=== PATIENT | male | born 1955 | race Caucasian/White ===

== ENCOUNTER 2018-08-16 07:41 | Outpatient (CLI) | payer MEDICAID ==
[~2018-08-16] VITALS: Ht 172.7 cm; Wt 76.4 kg
--- NOTE | ~2018-08-16 | HEMODYNAMI ---
PATIENT:LEANN KRUSE MEDICAL RECORD: [id number] : 51 LOCATION:D.CAT ADMISSION DATE: 08/16/18 Generatedon:08/16/201811:59 Patient name: LEANN KRUSE Patient #: [id number] SSN: : Date of study: 08/16/2018 Page: Of Hemodynamic Procedure Report Patient Data Patient Demographics Procedure consent was obtained First Name: LEANN Gender: Male Last Name: AIXA : 1955 Middle Initial: HENRY Age: 63 year(s) Patient #: [id number] Race: Unknown Additional ID: [id number] Contact details [address]: [address] [place] [address] State: [place] City: [place] Zip code: [address] Past Medical History Allergies Allergen Reaction Date Comments Reported Other allergy 08/16/2018 ASA Admission Admission Data Admission Date: 08/16/2018 Admission Time: 7:41 Height (in.): 70 BSA: 2 (m2) Height (cm.): 177.8 BMI: 25.83 (kg/m2) Weight (lbs.): 180 Weight (kg.): 81.65 Procedure Procedure Types Cath Procedure Diagnostic Procedure LHC LHC w/Coronaries Sedation Charges Moderate Sedation up to 15 minutes PCI Procedure Coronary Stent Coronary Stent Initial PTCA PTCA Additional Procedure Description Procedure Date Procedure Date: 08/16/2018 Procedure Start Time: 11:38 Procedure End Time: 11:59 Procedure Staff Name Function Patrick Montalvo MD Performing Physician Miranda Johns RT Monitor Georgiana Schneider RT Scrub Kiarra Merrill RN Nurse Procedure Data Cath Procedure Fluoroscopy Diagnostic fluoroscopy Total fluoroscopy Time: 5 time: 5 min min Diagnostic fluoroscopy Total fluoroscopy dose: dose: 1142 mGy 1142 mGy Contrast Material Contrast Material Type Amount (ml) Isovue 300 110 Entry Location Entry Primary Successful Side Size Upsize Upsize Entry Closure Succes sful Closure Location (Fr) 1 (Fr) 2 (Fr) Remarks Device Remarks Femoral Right 5 Fr 6 Fr Exoseal artery Short Estimated blood loss: 10 ml Diagnostic catheters Device Type Used For End Catheter Placement MULTIPACK Pigtail 5 Fr Procedure catheter MULTIPACK JL 4.0 5Fr Procedure catheter MULTIPACK 3DRC 5Fr Procedure catheter Procedure Complications No complications Procedure Medications Medication Administration Route Dosage 0.9% NaCl I.V. 100 ml/hr Oxygen etCO2 Nasal cannula 2 l/min Lidocaine 2% added to field 20 Heparin Flush Bag added to field 2 bags (1000units/500ml NS) Versed I.V. 2 mg Fentanyl I.V. 50 mcg Heparin Bolus I.V. 4000 units Integrilin (Bolus I.V. 6.8 ml 2mg/ml) Plavix P.O. 600 mg Versed I.V. 1 mg Fentanyl I.V. 25 mcg Hemodynamics Rest BSA: 2 (m2) O2 Consumption: Estimated: 227.07 (ml/min) O2 Consumption indexed: E stimated:113.54 (ml/min/m) Heart Rate: 62 (bpm) Snapshots Pre Cath Intra NCS Post Cath Vital Signs Time Heart Resp SPO2 etCO2 NIBP (mmHg) Rhythm Pain Sedation Rate (ipm) (%) (mmHg) Status Level (bpm) 11:20:19 70 16 99 32.4 133/79(106) NSR 0 (11) 10(A) , No pain 11:24:40 72 13 100 32.6 130/77(99) NSR 0 (11) 10(A) , No pain 11:28:54 73 12 98 33 124/72(101) NSR 0 (11) 10(A) , No pain 11:33:08 71 11 98 33 123/74(87) NSR 0 (11) 10(A) , No pain 11:37:22 72 11 98 33.6 114/73(89) NSR 0 (11) 10(A) , No pain 11:41:33 76 14 98 32 121/72(93) NSR 0 (11) 10(A) , No pain 11:45:50 73 12 98 33 126/69(96) NSR 0 (11) 9(A) , No pain 11:50:06 77 10 97 33 128/71(89) NSR 0 (11) 9(A) , No pain 11:54:24 75 12 96 32.3 127/75(105) NSR 0 (11) 10(A) , No pain 11:58:42 72 12 98 0 136/71(100) NSR 0 (11) 10(A) , No pain Medications Time Medication Route Dose Verified Delivered Reason Notes Effectiveness by by 11:12:12 0.9% NaCl I.V. 100 Patrick Kiarra used for ml/hr Katia Merrill print graphic designer 11:12:22 Oxygen etCO2 2 Patrick Kiarra used for Nasal l/min Katia Merrill procedure cannula RN 11:12:28 Lidocaine 2% added 20ml Patrick Patrick for local to vial Katia Montalvo MD anesthetic field 11:12:34 Heparin Flush added 2 Patrick Patrick used for Bag to bags Katia Montalvo MD procedure (1000units/500ml field NS) 11:35:35 Versed I.V. 2 mg Patrick Kiarra for sedation Katia Merrill RN 11:35:43 Fentanyl I.V. 50 Patrick Kiarra for sedation mcg Katia Merrill RN 11:42:55 Heparin Bolus I.V. 4000 Patrick Kiarra for verif ied units Katia Merrill anticoagulation with Dr. CARLEEN Montalvo 11:44:24 Integrilin I.V. 6.8 Patrick Kiarra for waste d (Bolus 2mg/ml) ml Katia Merrill anticoagulation 3.2mL RN 11:44:39 Plavix P.O. 600 Patrick Kiarra for mg Katia Merrill antiplatelet RN therapy 11:44:50 Versed I.V. 1 mg Patrick Kiarra for sedation Katia Merrill RN 11:44:54 Fentanyl I.V. 25 Patrick Kiarra for sedation mcg Katia Merrill RN Procedure Log Time Note 11:08:03 Signed procedure consent form obtained from patient. 11:08:04 Diagnostic Cath status Elective 11:08:05 Time tracking: Regular hours (M-F 7:00 - 5:00) 11:08:09 Plan of Care:Hemodynamics will remain stable., Cardiac rhythm will remain stable., Comfort level will be maintained., Respiratory function will remain adequate., Patient/ family verbilizes understanding of procedure., Procedure tolerated without complication., Recovers from procedure without complications.. 11:08:19 H&P Date Dictated: 08/03/2018 Within 30 days and on chart., H&P Addendum completed by physician on day of procedure. (MUST COMPLETE FOR ALL OUTPATIENTS). 11:09:26 Patient Height : 70 inches 11:09:30 Patient Weight : 180 lbs 11:09:49 Patient allergic to Other allergyASA 11:09:54 Miranda Johns RT(R) sent for patient. Start room use. 11:12:12 0.9% NaCl 100 ml/hr I.V. was administered by Kiarra Merrill RN; used for procedure; 11:12:22 Oxygen 2 l/min etCO2 Nasal cannula was administered by Kiarra Merrill RN; used for procedure; 11:12:28 Lidocaine 2% 20ml vial added to field was administered by Patrick Montalvo MD; for local anesthetic; 11:12:34 Heparin Flush Bag (1000units/500ml NS) 2 bags added to field was administered by Patrick Montalvo MD; used for procedure; 11:15:32 Patient received from Pre/Post Procedure Room to CCL 1 Alert and oriented. Tansferred to table in Supine position. 11:15:33 Warm blankets applied, and halina hugger turned on for patient comfort. 11:15:33 Correct patient and procedure confirmed by team. 11:15:34 ECG and BP/O2 sat monitors applied to patient. 11:15:35 Full Disclosure recording started 11:19:16 Vital chart was started 11:19:21 Rhythm: sinus rhythm 11:25:14 Baseline sample Acquired. 11:25:19 Pre-procedure instructions explained to patient. 11:25:20 Pre-op teaching completed and patient verbalized understanding. 11:25:21 Family in patients room. 11:25:23 Patient NPO since Midnight. 11:25:25 Is the patient allergic to Iodine/contrast media? No. 11:25:26 Is patient on blood thinner?No 11:25:28 Patient diabetic? Yes. 11:25:30 If diabetic: On Metformin? No 11:25:32 Previous problem with sedation/anesthesia? No ? 11:25:33 Snore? Yes 11:25:41 Sleep apnea? Yes 11:25:44 Deviated septum? No 11:25:45 Opens mouth fully? Yes 11:25:46 Sticks out tongue? Yes 11:25:48 Airway obstruction? No ? 11:25:51 Dentures? Yes OUT 11:25:54 Pre procedure: right dorsailis pedis pulse 2+ Normal; easily identifiable; not easily obliterated 11:25:56 Patient pain scale 0/10 ?. 11:26:19 IV patent on arrival in left forearm with 0.9% NaCl at [facility]. 11:26:22 Lab results completed and on chart. 11:26:25 Right groin area was prepped with chlora-prep and draped in sterile fashion 11:: Alarms reviewed by R. N. 11:: Sharps counted by scrub and verified by R.N. 11:26:30 Use device set Femoral Dx 11:26:32 ACIST Syringe (79655) opened to sterile field. 11:26:33 Bag Decanter (2002S) opened to sterile field. 11:26:35 ACIST Hand Control (36844) opened to sterile field. 11:26:35 ACIST Manifold (98465) opened to sterile field. 11:26:36 Tegaderm 4 x 4 (1626W) opened to sterile field. 11:26:40 Medline Cath Pack ([id number]) opened to sterile field. 11:26:41 DIAGNOSTIC WIRE .035 260cm J wire (227574) opened to sterile field. 11:26:42 DIAGNOSTIC Multipack 5Fr catheter set (LO9229) opened to sterile field. 11:26:43 SHEATH Prelude 5Fr 0.035 (XKL-0K-57-035) opened to sterile field. 11:33:36 Zero performed for pressure channel P1 11:34:00 --------ALL STOP TIME OUT------ 11:34:00 Final Timeout: patient, procedure, and site verified with staff and physician. All members of the team are in agreement. 11:34:04 Right groin site verified by team. 11:34:08 Physical assessment completed. ASA score P 2 - A patient with mild systemic disease as per Patrick Montalvo MD. 11:34:11 Sedation plan: IV Moderate Sedation Medication:Versed, Fentanyl 11:35:35 Versed 2 mg I.V. was administered by Kiarra Merrill RN; for sedation; 11:35:43 Fentanyl 50 mcg I.V. was administered by Kiarra Merrill RN; for sedation; 11:38:25 Procedure started. 11:38:29 Local anesthetic to right femoral artery with Lidocaine 2% by Patrick Montalvo MD.INITIAL ACCESS ONLY 11:39:06 A 5 Fr sheath was inserted into the Right Femoral artery 11:39:12 A MULTIPACK Pigtail 5 Fr catheter was advanced over the wire and used for Procedure. 11:39:39 LV gram done using GRAYSON 11:39:42 Injector settings: Ml/sec: 10, Volume: 20, 11:39:47 EF : 50 % 11:39:51 Catheter removed. 11:40:03 A MULTIPACK JL 4.0 5Fr catheter was advanced over the wire and used for Procedure. 11:40:44 LCA angiography performed. 11:41:20 SHEATH 6FR Marion (DTD511) opened to sterile field. 11:41:27 Catheter removed. 11:41:35 A MULTIPACK 3DRC 5Fr catheter was advanced over the wire and used for Procedure. 11:42:30 RCA angiography performed. 11:42:32 Catheter removed. 11:42:55 Heparin Bolus 4000 units I.V. was administered by Kiarra Merrill RN; for anticoagulation; verified with Dr. Montalvo 11:43:31 Sheath upsized to a 6 Fr Short. 11:43:49 INFLATOR Merit BasixCompak (ZH8444) opened to sterile field. 11:43:49 CHOICE PT Extra Support 182cm wire ([id number]) opened to sterile field. 11:43:50 CHOICE PT Extra Support 182cm wire ([id number]) opened to sterile field. 11:43:55 GUIDE 6FR XBLAD 4.0 catheter ([id number]) opened to sterile field. 11:44:09 6 Fr XBLAD 4 guide catheter was inserted over the wire 11:44:18 CHOICE ES 182 #1 wire advanced. 11:44:24 Integrilin (Bolus 2mg/ml) 6.8 ml I.V. was administered by Kiarra Merrill RN; for anticoagulation; wasted 3.2mL 11:44:39 Plavix 600 mg P.O. was administered by Kiarra Merrill RN; for antiplatelet therapy; 11:44:43 WIRE #1 ADVANCED ACROSS DIAG 11:44:50 Versed 1 mg I.V. was administered by Kiarra Merrill RN; for sedation; 11:44:54 Fentanyl 25 mcg I.V. was administered by Kiarra Garfield RN; for sedation; 11:45:14 WIRE #2 ADVANCED ACROSS LAD 11:46:18 Inflate balloon Inflation number: 1 A EUPHORA 2.0 x 15 Balloon ([id number]) was prepped and advanced across the 1st Diag, then inflated to 11 PERLA for 0:10 (min:sec). 11:46:26 Balloon removed over the wire. 11:48:05 Place stent Inflation Number: 2 A GUY RX 2.5 x 08 stent ([id number]) was prepped and advanced across the 1st Diag. The stent was deployed at 13 PERLA for 0:10 (min:sec). 11:48:15 Stent catheter was removed intact over wire. 11:48:43 WIRE REMOVED FROM DIAG 11:49:27 Inflation number: 1 The stent balloon was then re-inflated across the Mid LAD to 21 PERLA for 0:10 (min:sec). 11:49:39 Inflation number: 2 The stent balloon was then re-inflated across the Mid LAD to 21 PERLA for 0:10 (min:sec). 11:50:05 Stent catheter was removed intact over wire. 11:51:24 Inflate balloon Inflation number: 3 A EUPHORA 3.0 x 15 Balloon ([id number]) was prepped and advanced across the Mid LAD, then inflated to 17 PERLA for 0:10 (min:sec). 11:51:50 Balloon removed over the wire. 11:51:50 Wire removed. 11:51:51 Guide catheter removed. 11:51:57 EXOSEAL 6Fr (EX600) opened to sterile field. 11:52:47 Sheath removed intact; hemostasis achieved with Exoseal to the Right Femoral artery. 11:52:49 Procedure ended.(Physican Out) 11:54:11 Fluoroscopy time 05.00 minutes. 11:54:13 Fluoroscopy dose: 1142 mGy 11:54:13 Flurop Dose total: 1142 11:54:17 Contrast amount:Isovue 300 110ml. 11:54:19 Sharps counted by scrub and verified by R.N. 11:54:22 Post-op/insertion site Right Femoral artery dressed using a 4 x 4 and Tegaderm. 11:54:25 Post right femoral artery:stable, soft, clean and dry 11:54:28 Post-procedure physical assessment completed. ASA score P 2 - A patient with mild systemic disease as per Patrick Montalvo MD. 11:54:32 Post procedure rhythm: sinus rhythm 11:54:37 Estimated blood loss: 10 ml 11:54:53 Post procedure instruction explained to patient.Patient verbalizes understanding. 11:54:53 Patient needs reinforcement of post procedure teaching. 11:57:46 Procedure type changed to Cath procedure, Diagnostic procedure, LHC, LHC w/Coronaries, Sedation Charges, Moderate Sedation up to 15 minutes, PCI procedure, Coronary Stent, Coronary Stent Initial, PTCA, PTCA Additional 11:58:58 Procedure and supply charges have been captured, reviewed, submitted and are correct. 11:59:00 Procedure Complication : No complications 11:59:02 Vital chart was stopped 11:59:03 See physician's report for complete and final results. 11:59:04 Report given to Pre/Post Procedure Room. 11:59:07 Patient transfered to Pre/Post Procedure Room with Bed. 11:59:11 Procedure ended. 11:59:11 Full Disclosure recording stopped 11:59:15 End room use (Document Last) Intervention Summary Intervention Notes Time ActionType Lesion and Equipment Used Action# Pressure Duration Attributes 11:46:18 Inflate 1st Diag EUPHORA 2.0 x 1 11 00:10 balloon 15 Balloon ([id number]) 11:48:05 Place stent 1st Diag GUY RX 2.5 x 2 13 00:10 08 stent ([id number]) 11:49:27 Reinflate Mid LAD GUY RX 2.5 x 1 21 00:10 stent 08 stent balloon ([id number]) 11:49:39 Reinflate Mid LAD GUY RX 2.5 x 2 21 00:10 stent 08 stent balloon ([id number]) 11:51:24 Inflate Mid LAD EUPHORA 3.0 x 3 17 00:10 balloon 15 Balloon ([id number]) Device Usage Item Name Manufacture Quantity Catalog Number Hospital Part Current Minimal Lot# / Charge Number Stock Stock Serial# Code ACIST Syringe Acist 1 55923 785266 237814 692718 20 (09584) [employer] Bag Decanter Microtek 1 678770 82066 046319 5 () Medical Inc. ACIST Hand Acist 1 76332 150007 496663 937467 5 Control (86987) Medical Systems Inc ACIST Manifold Acist 1 13151 577055 110142 966575 5 (86168) Medical Systems Inc Tegaderm 4 x 4 3M 1 1626W 712436 471696 199575 5 (1626W) Medline Cath Medline 1 [id number] 944732 78476 799026 5 Pack ([id number]) DIAGNOSTIC WIRE [facility] [place] 1 578240 372339 893456 003909 30 .035 260cm J wire (474569) DIAGNOSTIC Cardinal 1 CG9359 315821 36826 942458 30 Multipack 5Fr Health catheter set ([id number]) SHEATH Prelude Merit 1 OUN-3U-71-035 673155 541179 184869 5 5Fr 0.035 Medical (JLP-2Y-60-035) MULTIPACK Cardinal 1 767063 5 Pigtail 5 Fr Health catheter MULTIPACK JL Cardinal 1 941715 5 4.0 5Fr Health catheter SHEATH 6FR Terumo 1 FED460 792283 728370 918575 40 Marion (DLR570) MULTIPACK 3DRC Cardinal 1 444291 5 5Fr catheter Health INFLATOR Merit Merit 1 TY6554 200649 751781 753828 15 Bioapter ([id number]) CHOICE PT Extra [place]rose 2 [id number] 469758 978542 525284 5 Support 182cm Scientific wire ([id number]) GUIDE 6FR XBLAD Cardinal 1 [id number] 893479 204179 553428 3 4.0 catheter Health (43250487) EUPHORA 2.0 x Medtronic 1 [id number] 312842 992115 993356 5 [id number] 15 Balloon ([id number]) GUY RX 2.5 x Medtronic 1 [id number] 742132 8716951 844626 5 [id number] 08 stent ([id number]) EUPHORA 3.0 x Medtronic 1 [id number] 505281 937760 924375 5 [id number] 15 Balloon ([id number]) EXOSEAL 6Fr Cardinal 1 EX600 320656 157810 463000 10 (EX600) Health Signature Audit [place] Stage Time Signature Unsigned Intra-Procedure 08/16/2018 Miranda Johns 11:59:49 AM RT(R) Signatures Monitor : Miranda Johns Signature : RT Date : Time : [facility] [address] [facility] [place] [address]
--- NOTE | ~2018-08-16 | OP ---
PATIENT NAME: LEANN KRUSE MEDICAL RECORD: [id number] :51 LOCATION:D.CAT ADMISSION DATE: SURGEON: ROGELIO MAYO MD DATE OF OPERATION: 08/16/2018 PROCEDURES: 1. PTCA and stent, LAD diagonal. 2. PTCA, LAD. 3. Left heart catheterization. 4. Selective coronary angiography. 5. Left ventriculogram. INDICATIONS: Angina and coronary disease. PROCEDURE: After informed consent was obtained with detailed description of risks and benefits as well as alternative therapies, the patient elected to proceed with angiogram and angioplasty. The right femoral area was prepped and draped in normal sterile fashion. The right femoral artery was cannulated via modified Seldinger technique with placement of 6-Wolof sheath. All catheters were exchanged through this sheath. FINDINGS: Left ventriculogram performed in standard 30-degree GRAYSON view reveals good cardiac wall motion throughout all segments. Overall ejection fraction estimated at 60%. SELECTIVE CORONARY ANGIOGRAPHY: 1. Left main is with no significant angiographic disease. 2. Left anterior descending has a previously placed stent. There is a large diagonal that takes off at the previously placed stent that is 95% stenosed. 3. Left circumflex has mild irregularities, but no flow-limiting stenosis. 4. Right coronary has mild irregularities, but no flow-limiting stenosis. PTCA AND STENT OF THE LAD DIAGONAL: The diagonal was stented with a 2.5 x 8-mm [place] stent. This caused some plaque shift into the LAD. This was ballooned with a 2.5 and a 3.0 balloon. Result was 0% residual. IMPRESSION: Successful PTCA and stent of the LAD diagonal, going from 95% initial stenosis to 0% residual. TRANSINT:[id number] Voice Confirmation ID: [id number] DOCUMENT ID: [id number] ROGELIO MAYO MD at 1903 CC: [id number] DICTATION DATE: 08/16/18 1157 GROUND SUPPORT EQUIPMENT ASSEMBLER: 08/16/18 1212 DEP CLI 08/16/18 [facility] [address] [place] [id number]
[~2018-08-16 07:41] MED LIST: BAYER CHEWABLE81 MG PO; GLUCOPHAGE500 MG PO; GLUCOTROL 5 MG T5 MG PO; IPRAT-ALBUT 0.5-3 ML UPD; LOPRESSOR25 MG PO; MOBIC7.5 MG PO; NEURONTIN 300300 MG PO; PAMELOR10 MG; PLAVIX75 MG PO; PRAVACHOL20 MG PO; TRAZODONE HCL150 MG PO; VENTOLIN HFA18 GM INH
[2018-08-16] MEDS ORDERED: OXYCODONE HCL E20 MG PO (08:22)
[2018-08-16] MEDS ORDERED: PAMELOR10 MG PO (08:23)
[2018-08-16 08:38] VITALS: BP 133/77; Ht 172.7 cm; Wt 76.4 kg
[2018-08-16 09:03] LABS: BASOPHILS 0.2 % (0-2); HEMATOCRIT 36.5 % (42.0-54.0); HEMOGLOBIN 12.5 g/dL (13.5-17.5); IMMATURE GRANULOCYTES 0.2 % (0-5); LYMPHOCYTES 15.3 % (15-50); MCH 29.8 pg (26.0-34.0); MCHC 34.2 g/dL (31.0-37.0); MCV 87.1 fL (80.0-100.0); MEAN PLATELET VOLUME 10.6 fL (7.4-10.4); MONOCYTES 7.7 % (2-11); NEUTROPHILS 74.6 % (40-80); PLATELET COUNT 177 10x3/uL (130-400); RBC 4.19 10x6/uL (4.20-6.10); RDW 13.4 % (11.5-14.5); WBC 6.6 10x3/uL (4.8-10.8)
[2018-08-16 09:15] LABS: CALC OSMOLALITY 278 mosm/kg (275-300); CALCIUM 8.8 mg/dL (8.5-10.1); CARBON DIOXIDE 30.2 mmol/L (21.0-32.0); CHLORIDE - SERUM 104 mmol/L (98-107); GLUCOSE 167 mg/dL (74-106); SODIUM 138 mmol/L (136-145); UREA NITROGEN 10 mg/dL (7-18); eGFR NON AFRICAN AMERICAN 80 mL/min (90-120)
[2018-08-16] MEDS ORDERED: PLAVIX75 MG PO (12:01)
== END 2018-08-16 16:00 ==
LOC: D.CATH 07:41
PROVIDERS: Internal Medicine Interventional Cardiology
DX: I25.110 Atherosclerotic heart disease of native coronary artery with unstable angina pectoris (principal)

== ENCOUNTER → 2018-10-05 20:09 | Outpatient (CLI) | payer MEDICAID ==
[2018-08-16 08:38] VITALS: BMI 25.6
[~2018-10-05 20:09] MED LIST changes: +OXYCODONE HCL E20 MG PO; +PAMELOR10 MG PO
[2018-10-05 20:37] LABS: CHOL - HDL RATIO 2.1 ratio (2.3-4.9); LDL-HDL RATIO 0.9 ratio (1.5-3.5)
== END | disposition home or self-care (01) ==
LOC: D.LABREF 20:09
PROVIDERS: Internal Medicine Interventional Cardiology
DX: E78.5 Hyperlipidemia, unspecified (principal)

== ENCOUNTER → 2020-03-07 09:23 | Outpatient (CLI) | payer MEDICARE ==
[2018-08-16 08:38] VITALS: BMI 25.6
== END | disposition home or self-care (01) ==
LOC: D.HCCARDIO 03-01 10:30
PROVIDERS: ATTEND Internal Medicine Cardiovascular Disease
DX: I25.10 Atherosclerotic heart disease of native coronary artery without angina pectoris (principal)